=== PATIENT | female | born 1960 | race Caucasian/White ===

== ENCOUNTER 2016-07-31 17:51 | Inpatient (IN) | payer MEDICAID ==
[~2016-07-31] VITALS: Ht 157.5 cm; Wt 81.3 kg
--- NOTE | 2016-08-05 08:26 | HP ---
ADMIT: 08/01/2016 RM/LOC: 524 [facility] MR#: [id number] [address] [address] ANN FERNANDEZ [address] [place] [address] History and Physical SEX: F AGE: 56 : 1960 DATE OF SERVICE: HISTORY OF PRESENT ILLNESS: The patient is a 56-year-old female, who presents to the emergency room with gradual worsening right hip and leg pain. The patient states that four days ago, she fell at her home, flat onto her face. She says she suffered a broken nose and some bruising of her eye and some right leg pain, worse with ambulation. She says that due to the pain in her leg, she has mostly been lying in bed for the last four days and has not been getting up or been active at all. She notes that she has pain when ambulating and the only comfortable position for that right leg are either lying flat on her back or lying on that right affected side. Pain is sharp and shooting. It starts down in her calf or in her mid thigh and radiates up towards her hip joint. She does note some mild swelling, but no bruising of the area. She otherwise feels fatigued and attributes this to the pain sapping the energy from her. In the emergency room, x-ray was performed, which was negative, but given the patient's significant pain and difficulty with ambulation, CT of the pelvis was performed, which additionally does not show any fractures, acute pathology or evidence of joint effusion. PAST MEDICAL HISTORY: Hypothyroidism, methamphetamine abuse, cocaine abuse, and hepatitis C. PAST SURGICAL HISTORY: Right shoulder surgery, cholecystectomy, two C sections, and left knee surgery. FAMILY HISTORY: The patient's mother at a young age and father had unknown chronic illnesses. SOCIAL HISTORY: The patient denies alcohol use. Does have a history of meth and cocaine abuse. She is a current everyday smoker and twice. Two children from first marriage. Both marriages ended in divorce. High school education. Did get her GED while she was in [place] [facility]. Currently unemployed. MEDICATIONS: Exact medication list is still being obtained, but the patient takes Levoxyl, Synthroid, and Mobic. ALLERGIES: SULFA. REVIEW OF SYSTEMS: Other than right leg pain, the patient endorses some chronic sinusitis and some chronic low back pain with subsequent numbness and tingling of her right distal foot. She denies any fevers, chills, cough, chest pain, nausea, vomiting, or abdominal pain. Ten-point review of systems performed is negative except as noted above and per HPI. PHYSICAL EXAMINATION: VITAL SIGNS: Temp 98.3, pulse 70, respirations 20, blood pressure 162/92, and O2 saturation 91% on room air. GENERAL: The patient is in mild distress. She is uncomfortable due to her right lower extremity pain, but she is awake, alert, and oriented x3. ADMIT: 08/01/2016 RM/LOC: 524 [facility] MR#: [id number] [address] [place] [address] ANN FERNANDEZ [address] [place] [address] History and Physical SEX: F AGE: 56 : 1960 HEENT: Normocephalic and atraumatic. PERRLA. EOMI. Does have some residual bruising around her eye. NECK: No lymphadenopathy. No JVD. CARDIOVASCULAR: Regular rhythm and rate. No murmurs, rubs, or gallops. PULMONARY: Clear to auscultation bilaterally. ABDOMEN: Soft, nontender, and nondistended. Normoactive bowel sounds. EXTREMITIES: Left lower extremity, normal. Right lower extremity is exquisitely tender to palpation of the calf and thigh musculature. She does have some trace edema of her right lower extremity. She has a positive Homans sign. Strength is 4+/5 due to pain with movement of the right lower extremity. Negative log roll. Does have some pain to palpation over the deep venous system. NEURO: Sensation is slightly decreased in distal right lower extremity on her toes. Right knee and Achilles deep tendon reflexes are normal. Right lower extremity, DP and PT pulses are bounding. ASSESSMENT: 1. Right lower extremity myalgia and pain. 2. Hypothyroidism. 3. Hepatitis C. PLAN: We will go ahead and add on a CK, TSH, TONI, D-dimer at the patient's labs. We will obtain a right lower extremity ultrasound to rule out DVT given patient's recent four-day period of inactivity. We will also try to control pain with oral pain medications with IV morphine for breakthrough. Other differential considerations include muscle contusion, myositis, ischemia, or compartment syndrome or other. Agustín Guerrero MD Resident / Abhijeet Mustafa MD / modl JOB #: [id number] CC: Jerrica Morris, Attending Physician Jerrica Morris, Family Physician
[2016-08-05] MEDS ORDERED: MOBIC DPS7.5 MG PO (15:52)
[2016-08-05] MEDS ORDERED: PRILOSEC DPS20 MG PO (15:52)
[2016-08-05] MEDS ORDERED: LEVOTHYROXINE150 MCG PO (15:52)
[2016-08-05] MEDS ORDERED: HYDROCHLOROTHIA25 MG PO (15:52)
[2016-08-05] MEDS ORDERED: COLACE-DPS100 MG PO (15:53)
[2016-08-05] MEDS ORDERED: OXY-CONTIN10 MG PO (15:53)
[2016-08-05] MEDS ORDERED: ZANAFLEX4 MG PO (15:53)
[2016-08-05] MEDS ORDERED: LEVAQUIN DPS500 MG PO (15:53)
[2016-08-05] MEDS ORDERED: LORTAB 7.5-3251 EACH PO (15:54)
--- NOTE | 2016-08-07 11:01 | ER ---
ADMIT: 07/31/2016 RM/LOC: ER [facility] MR#: [id number] [address] [address] ANN FERNANDEZ [address] [place] [address] Emergency Room Report SEX: F AGE: 56 : 1960 DATE: 07/31/2016 SUBJECTIVE: A 56-year-old female with right hip and shoulder pain, 4 four days. She fell at home, unable to get out of bed. Right hip pain. She does have a bruise in her right eye, her nose. She has had several surgeries with hepatitis C as part of her diagnosis and hypothyroidism. See T-sheet for the rest of the medication list. PHYSICAL EXAMINATION: GENERAL: She is not rotated on the right eye nor is shortened. VITAL SIGNS: On exam, vitals are within normal limits. Tender at the iliac crest. Good pulses bilaterally. X-ray negative for pathology, although she says she cannot get up, so I went ahead and ordered a CT scan of the pelvis to rule out any occult fracture. Dr. Griggs will continue on this case and disposition of the patient. She was given fentanyl for pain control and has held her pretty well. CHIP Martinez / Madhu Hooker MD / olivia JOB #: [id number] CC: Madhu Hooker MD, Attending Physician Jerrica Morris APRN, [employer], Family Physician
--- NOTE | 2016-09-07 07:51 | DS ---
ADMIT: 08/01/2016 RM/LOC: 524 [facility] MR#: [id number] [id number] [facility] [address] [place], [place] [address] ANN FERNANDEZ [address] [place] [address] Discharge Summary SEX: F AGE: 56 : 1960 ADMISSION DATE: 08/01/2016 DISCHARGE DATE: 08/05/2016 DISCHARGE DIAGNOSES: 1. Severe right knee degenerative joint disease. 2. Hypothyroidism. 3. Hepatitis C. BRIEF HISTORY OF PRESENT ILLNESS: The patient is a 56-year-old female, who presented to the emergency room with worsening right hip and leg pain. This pain had been going on for 4 days, was extremely severe and was affecting ambulation. She says that it progressed to the point where she has only been lying in bed for 4 days. Has been unable to walk. The pain was sharp and shooting in her calf to mid thigh, radiates towards her hip joint. In the emergency room, x-ray was negative of the hip. CT was also performed, which did not reveal any fracture or acute pathology but given patient's severe pain, she was admitted for further workup and pain control. CK, TONI, and D- dimer were drawn which were normal. There was no evidence of rhabdomyolysis or DVT on ultrasound. She was given some NSAIDs and muscle relaxants, which did not improve her pain. Investigation then moved to the knee. X-ray of the right knee was performed, which showed some severe osteoarthritis of her right knee. The pain was uncontrolled with medications so Orthopedics were contacted. Dr. Valencia saw the patient and evaluated her for her severe osteoarthritis of her right knee. They went ahead with a knee injection 2 mg each of lidocaine, Marcaine, and Celestone. This did help with her pain, but patient continued to be unable to work at full capacity with PT and OT. Pain control was escalated to Oxy Contin and Lortab. MRI of the hips were negative for any other pathology and on 08/05 patient was dismissed home with pain medication and close followup. DISCHARGE MEDICATIONS: ADMIT: 08/01/2016 RM/LOC: 524 [facility] MR#: [id number] [address] [facility] [address] [place], [place] [address] ANN FERNANDEZ [address] [place] [address] Discharge Summary SEX: F AGE: 56 : 1960 1. Synthroid 150 mcg daily. 2. Mobic 7.5 mg b.i.d. 3. Omeprazole 20 mg b.i.d. 4. Hydrochlorothiazide 25 mg daily. 5. Levaquin 500 mg x5 days. 6. Colace 100 mg b.i.d. p.r.n. 7. OxyContin 10 mg p.o. b.i.d. #30 tabs. 8. Lortab 7.5/325, 1-2 tabs p.o. q.i.d. p.r.n., #40. FOLLOWUP: Patient is to follow up on August 10 at 10 a.m. with Jerrica Morris, Nurse Practitioner, at the [facility]. The patient was discharged stable with improved pain control. Agustín Guerrero MD Resident / Abhijeet Mustafa MD / ajnoé JOB #: [id number] CC: Abhijeet Mustafa MD, Attending Physician Abhijeet Mustafa MD, Family Physician
== END 2016-08-05 15:05 | disposition home or self-care (01) | DRG 554 ==
LOC: ER 17:51 → 5MS 08-01 00:10 → ER 08-01 00:10 → 5MS 08-01 02:10
PROVIDERS: ADMIT Family Medicine
PROC: 3E0U33Z Introduction of Anti-inflammatory into Joints, Percutaneous Approach (ICD-10-PCS; principal; 2016-08-04)
PROC: 3E0U3BZ Introduction of Anesthetic Agent into Joints, Percutaneous Approach (ICD-10-PCS; principal; 2016-08-04)
DX: M17.11 Unilateral primary osteoarthritis, right knee (principal); B19.20 Unspecified viral hepatitis C without hepatic coma; M25.551 Pain in right hip; E03.9 Hypothyroidism, unspecified; S00.11XA Contusion of right eyelid and periocular area, initial encounter; W19.XXXA Unspecified fall, initial encounter; F17.210 Nicotine dependence, cigarettes, uncomplicated; J32.9 Chronic sinusitis, unspecified

== ENCOUNTER → 2016-08-17 | Outpatient (CLI) | payer MEDICAID ==
[~2016-08-17] MED LIST: COLACE-DPS100 MG PO; HYDROCHLOROTHIA25 MG PO; LEVAQUIN DPS500 MG PO; LEVOTHYROXINE150 MCG PO; LORTAB 7.5-3251 EACH PO; MOBIC DPS7.5 MG PO; OXY-CONTIN10 MG PO; PRILOSEC DPS20 MG PO; ZANAFLEX4 MG PO
== END | disposition home or self-care (01) ==
LOC: RAD.S 15:30
DX: M54.5 Low back pain (principal); M47.896 Other spondylosis, lumbar region; M48.56XA Collapsed vertebra, not elsewhere classified, lumbar region, initial encounter for fracture; M48.06 Spinal stenosis, lumbar region; G89.29 Other chronic pain; G62.89 Other specified polyneuropathies; W19.XXXA Unspecified fall, initial encounter

== ENCOUNTER 2016-09-23 08:55 | Day surgery (SDC) | payer MEDICAID ==
[~2016-09-23] VITALS: Ht 157.5 cm; Wt 82.5 kg
== END 2016-09-23 12:45 | disposition home or self-care (01) ==
LOC: RAD.S 08:55 → EDSTATUS 10:00 → RAD.S 12:45
DX: M48.56XA Collapsed vertebra, not elsewhere classified, lumbar region, initial encounter for fracture (principal); M48.06 Spinal stenosis, lumbar region; M47.816 Spondylosis without myelopathy or radiculopathy, lumbar region; M54.40 Lumbago with sciatica, unspecified side; Z88.2 Allergy status to sulfonamides; Z88.8 Allergy status to other drugs, medicaments and biological substances; Z79.899 Other long term (current) drug therapy